=== PATIENT | male | born 1980 | race American Indian/Alaskan Native ===

== ENCOUNTER 2016-12-19 19:30 | Emergency (ER) | payer SELFPAY ==
[2016-12-19 20:41] VITALS: BP 133/88
== END 2016-12-19 22:10 | disposition left against medical advice (07) ==
LOC: ED 19:30
DX: K08.89 Other specified disorders of teeth and supporting structures (principal); Z53.21 Procedure and treatment not carried out due to patient leaving prior to being seen by health care provider

== ENCOUNTER 2017-02-06 05:19 | Emergency (ER) | payer SELFPAY ==
[2017-02-06] MEDS ORDERED: TYLENOL PO ONE (05:33)
[2017-02-06] MEDS ORDERED: TYLENOL ONE (05:33)
[2017-02-06 05:38] VITALS: BP 119/78
--- NOTE | 2017-02-06 08:31 | Emergency Department Report ---
ED Lower Extremity HPI - General Chief Complaint: Extremity Injury, Lower Stated Complaint: RT KNEE PAIN Time Seen by Provider: 02/06/17 08:21 Source: patient Mode of arrival: Ambulatory Limitations: No Limitations - History of Present Illness Initial Comments: This is a 36-year-old male that presents right knee pain x1 day. Patient stated he was fixing his car while bending over and while standing up he felt a pop sensation to her right knee. Patient obtains of limited range of motion, pain, and swelling. Patient denies any numbness or tingling sensation. Patient stated has history of similar symptoms and has been resolved over time with ice. Patient now presents due to pain that is worse than previous symptoms. Patient denies any trauma to area. Patient denies taking anything OTC for pain. Patient denies any chest pain, shortness of breath, fever, chills , joint redness, joint swelling, numbness, tingling, stiff neck, nausea or vomiting. Patient states allergies to codeine. Denies significant past medical history. MD Complaint: knee injury -: Gradual, days(s) (1) Injury: Knee: Right Type of Injury: other Place: home Severity: mild Severity scale (0 -10): 4 Improves With: nothing Worsens With: nothing Associated Symptoms: snap/pop sensation, swelling, able to partially bear weight , ambulatory. denies: numbness, tingling, unable to bear weight - Related Data Previous Rx's Medication Instructions Recorded Last Taken Type Ibuprofen [Motrin 600 MG tab] 600 mg PO Q8H PRN #15 tablet 02/06/17 Unknown Rx Allergies Allergy/AdvReac Type Severity Reaction Status Date / Time codeine Allergy Dizziness Verified 12/19/16 19:36 ED Review of Systems ROS: Stated complaint: RT KNEE PAIN Other details as noted in HPI Constitutional: denies: chills, fever Eyes: denies: eye pain, eye discharge, vision change ENT: denies: ear pain, throat pain Respiratory: denies: cough, shortness of breath, wheezing Cardiovascular: denies: chest pain, palpitations Endocrine: no symptoms reported Gastrointestinal: denies: abdominal pain, nausea, diarrhea Genitourinary: denies: urgency, dysuria Musculoskeletal: denies: back pain, joint swelling, arthralgia Skin: denies: rash, lesions Neurological: denies: headache, weakness, paresthesias Psychiatric: denies: anxiety, depression Hematological/Lymphatic: denies: easy bleeding, easy bruising ED Past Medical Hx - Surgical History Past Surgical History?: Yes Additional Surgical History: Rt wrist surgery. Rt ankle - Social History Smoking Status: Current Every Day Smoker Substance Use Type: Alcohol - Medications Home Medications: Home Medications Medication Instructions Recorded Confirmed Last Taken Type Ibuprofen [Motrin 600 MG tab] 600 mg PO Q8H PRN #15 tablet 02/06/17 Unknown Rx ED Physical Exam - General Limitations: No Limitations General appearance: alert, in no apparent distress - Head Head exam: Present: atraumatic, normocephalic, normal inspection - Eye Eye exam: Present: normal appearance, PERRL, EOMI. Absent: scleral icterus, conjunctival injection, nystagmus, periorbital swelling, periorbital tenderness Pupils: Present: normal accommodation - ENT ENT exam: Present: normal exam, normal orophraynx, mucous membranes moist, TM's normal bilaterally, normal external ear exam - Neck Neck exam: Present: normal inspection, full ROM. Absent: tenderness, meningismus, lymphadenopathy, thyromegaly - Respiratory Respiratory exam: Present: normal lung sounds bilaterally. Absent: respiratory distress, wheezes, rales, rhonchi, stridor, chest wall tenderness, accessory muscle use, decreased breath sounds, prolonged expiratory - Cardiovascular Cardiovascular Exam: Present: regular rate, normal rhythm, normal heart sounds. Absent: bradycardia, tachycardia, irregular rhythm, systolic murmur, diastolic murmur, rubs, gallop - GI/Abdominal GI/Abdominal exam: Present: soft, normal bowel sounds. Absent: distended, tenderness, guarding, rebound, rigid, diminished bowel sounds - Rectal Rectal exam: Present: deferred - Extremities Exam Extremities exam: Present: normal inspection, full ROM, normal capillary refill. Absent: tenderness, pedal edema, joint swelling, calf tenderness - Expanded Lower Extremity Exam Right Hip exam: Present: normal inspection, full ROM. Absent: tenderness, swelling, abrasion Upper Leg exam: Present: normal inspection, full ROM. Absent: tenderness, swelling, abrasion, laceration, ecchymosis, deformity, crepidus, dislocation, erythema Knee exam: Present: normal inspection, full ROM, swelling, full knee extension. Absent: tenderness, abrasion, laceration, ecchymosis, deformity, crepidus, dislocation, erythema, effusion, pain w/ pronation/supination, posterior draw sign, pain/laxity with valgus, pain/laxity with varus Lower Leg exam: Present: normal inspection, full ROM. Absent: tenderness, swelling, abrasion, erythema, Chidi's sign Ankle exam: Present: normal inspection, full ROM. Absent: tenderness, swelling , ecchymosis, dislocation, anterior draw sign Foot/Toe exam: Present: normal inspection, full ROM. Absent: tenderness, swelling, abrasion, laceration, tenderness at base of 5th metatarsal, subungual hematoma Neuro vascular tendon exam: Present: no vascular compromise Gait: Positive: observed and normal - Back Exam Back exam: Present: normal inspection, full ROM. Absent: tenderness, CVA tenderness (R), CVA tenderness (L), muscle spasm, paraspinal tenderness, vertebral tenderness, rash noted - Neurological Exam Neurological exam: Present: alert, oriented X3, CN II-XII intact, normal gait, reflexes normal - Psychiatric Psychiatric exam: Present: normal affect, normal mood. Absent: depressed, agitated - Skin Skin exam: Present: warm, dry, intact, normal color. Absent: rash ED Course Vital Signs 02/06/17 05:32 Temperature 98.7 F Pulse Rate 75 Respiratory 18 Rate Blood Pressure 119/78 [Right] O2 Sat by Pulse 99 Oximetry ED Lower Extremity MDM - Medical Decision Making Ed course: This is a 36-year-old male that presents with right knee strain 1- an xray of right knee has been obtained prior to me seeing the patient. X-ray result has been notified to the patient with no further question about the patient. 2- patient received knee immobilizer with crutches and was instructed to follow- up with orthopedic doctor in 3-5 days for further evaluation such as a possibility of getting an MRI 3-Patient was also instructed to rest, elevate, compress, and ice extremity. 4- patient received ibuprofen 600 mg by mouth at the time of discharge. 5- at time time of discharge, the patient does not seem toxic or ill in appearance. No acute signs of distress noted. Patient agrees to discharge treatment plan of care. No further questions noted by the patient. Critical care attestation.: If time is entered above; I have spent that time in minutes in the direct care of this critically ill patient, excluding procedure time. ED Disposition Clinical Impression: Strain of knee Qualifiers: Encounter type: initial encounter Laterality: right Qualified Code(s): S86.911A - Strain of unspecified muscle(s) and tendon(s) at lower leg level, right leg, initial encounter Disposition: TO HOME OR SELFCARE Is pt being admited?: No Does the pt Need Aspirin: No Condition: Stable Instructions: Knee Immobilizer (ED), Knee Pain (ED), Ibuprofen (By mouth), RICE Therapy (ED), Crutch Instructions (ED) Additional Instructions: follow-up with orthopedic doctor in 3-5 days for further evaluation such as a possibility of getting an MRI Rest, elevate, compress, and ice extremity. Take ibuprofen as prescribed as needed for pain. Prescriptions: Ibuprofen [Motrin 600 MG tab] 600 mg PO Q8H PRN #15 tablet PRN Reason: Pain Referrals: PRIMARY CAREMD [Primary Care Provider] - 3-5 Days [facility] [Outside] - 3-[address] [facility] [Outside] - 3-5 Days INOCENCIO GORDON MD [Staff Physician] - 3-5 Days Forms: Work/School Release Form(ED)
--- NOTE | 2017-02-06 09:45 | XRay Report ---
RIGHT KNEE THREE VIEWS: 02/06/17 05:19:00 CLINICAL: Pain FINDINGS: Examination is taken with a large radiopaque bandage at the knee. Normal bones, joints and soft tissues. No fracture or dislocation. No joint effusion. IMPRESSION: Normal.
== END 2017-02-06 10:04 | disposition home or self-care (01) ==
LOC: ED 05:19
DX: S83.91XA Sprain of unspecified site of right knee, initial encounter (principal); F17.210 Nicotine dependence, cigarettes, uncomplicated; Z88.6 Allergy status to analgesic agent; X58.XXXA Exposure to other specified factors, initial encounter; Y93.89 Activity, other specified; Y92.89 Other specified places as the place of occurrence of the external cause; Y99.8 Other external cause status
CPT/HCPCS: 99283